=== PATIENT | female | born 1995 | race Asian ===

== ENCOUNTER → 2018-02-25 | Outpatient (CLI) | payer BC ==
[~2018-02-25] MED LIST: LORTAB 5/500 501 TAB; MOBIC 7.5MG7.5 MG PO; OXAYDO7.5 MG PO; VOLTAREN 50MG T50 MG PO
[2018-02-25 16:38] LABS: BASO % 0.4 % (0.0-2.0); EOS # 0.1 (0.0-0.7); EOS % 1.5 % (0-4.0); GRAN # 4.9 (1.4-6.5); GRAN % 66.4 % (42.2-75.2); HEMATOCRIT 40.4 % (37.0-47.0); LYMPH # 1.8 (1.2-3.4); LYMPH % 23.6 % (20.0-51.0); MEAN CELL VOLUME 88 fl (80.0-100.0); MEAN CORPUSCULAR HEMOGLOBIN 31 pg (27.0-31.0); MEAN CORPUSCULAR HGB CONC 35 g/dl (33.0-37.0); MEAN PLATELET VOLUME 13.1 fl (7.4-10.4); MONO # 0.6 (0.1-0.6); MONO % 7.8 % (1.7-9.3); PLATELET COUNT 151 K/mm3 (130-400); RED BLOOD COUNT 4.58 M/mm3 (4.10-5.30); REDCELL DISTRIBUTION WIDTH-CV 11.9 % (11.5-14.5)
[2018-02-25 17:27] LABS: ERYTHROCYTE SEDIMENTATION RATE 5 mm/hr (0-20)
== END ==
LOC: COL.LAB 16:17
PROVIDERS: Internal Medicine Pulmonary Disease
DX: R04.2 Hemoptysis (principal)